=== PATIENT | female | born 1965 | race Caucasian/White ===

== ENCOUNTER 2024-02-25 09:55 | Day surgery (SDC) | payer OTHER ==
[~2024-02-25] VITALS: Ht 172.7 cm; Wt 92.8 kg
--- NOTE | ~2024-02-25 | OR ---
[facility] [address] [place], [place] [address] Draft DATE OF OPERATION: 02/25/2024 SURGEON: Jes Martell MD PREOPERATIVE DIAGNOSIS: Positive Cologuard test. POSTOPERATIVE DIAGNOSIS: Small polyps of rectum and questionable flat polyp at 110 cm (left colon). PROCEDURES: 1. Total colonoscopy to cecum with mucosal lift and excision of presumed polyp at 110 cm. 2. Polypectomies of rectal polyp. ANESTHESIA: Intravenous sedation; fentanyl 200 mcg and Versed 11 mg. INDICATION: This 58-year-old white woman is a patient of Dr. Grigsby. She was found to have a positive Cologuard test. She does have a history of colonoscopy in [place], [place] in 2013, which was said to have had "colitis" as a finding. She had been taking medicine thereafter, but time faded away from taking the medicine. She has no symptoms of bleeding, diarrhea or constipation. She has no family history of colon cancer. She is admitted at this time to undergo colonoscopy on the basis of a recent Cologuard test that was positive. She understands the risk of bleeding, infection, and perforation related to colonoscopy and wished to proceed. FINDINGS: The prep was quite excellent. Complete colonoscopy was undertaken to the cecum. She did require a fair amount of sedation for comfort. There is a ring-like flat polypoid lesion at 110 cm in the left colon which was suggestive though not particularly diagnostic of a flat polyp versus the orifice of a diverticulum. Notably, she had no other diverticula. This was treated with mucosal lift using Endomark tattoo dye as well as morcellation excision of the abnormal tissue. Hemoclips were applied. Additionally, there were very small polyps of the rectum that were excised with cold morcellation technique. PROCEDURE IN DETAIL: The patient was brought to the endoscopy suite and placed in the lateral decubitus position, given intravenous sedation to the point of slurred speech and nystagmus. PATIENT NAME: ADRIEL SEGOVIA OPERATIVE REPORT DATE OF : 63 REPORT #: [id number] PHYSICIAN: JES MARTELL MD PCP: ZION GRIGSBY MD REPORT IS CONFIDENTIAL AND NOT TO BE RELEASED WITHOUT AUTHORIZATION [facility] [address] [place], [place] [address] Draft Digital rectal examination was normal. Additional sedation was given as needed. An Olympus video colonoscope was passed in the rectum and manipulated throughout the colon noting some small polyps at the rectosigmoid. The scope was advanced beyond this ultimately to the cecum. Full intubation of the cecum was accomplished. The scope was withdrawn and examination throughout showed no sign of abnormality until approximately 110 cm from the anal verge where a ring-like elevated mucosal lesion was identified. It was suggestive of a polyp, though had some appearance of possible orifice of a diverticulum. Interrogation of the area with biopsy forceps demonstrated no actual lumen. Mucosal lift with Endomark tattoo dye was undertaken, which made the mucosal abnormality prominent. Still one could not be entirely sure that this was in fact the polyp. The edges of the lesion were excised with cold morcellation technique and ultimately two hemoclips applied to the site on the unlikely possibility this represented unifocal diverticulum. The scope was further withdrawn and ultimately the rectum once again showed very small polyps there, which were excised with cold morcellation technique. Retroflexed view showed internal hemorrhoidal change. The scope was removed and the patient was taken to the recovery room in good condition. CONCLUDING DIAGNOSES: 1. Polyps of rectum. 2. Possible polyp of left colon at 110 cm. PLAN: If the lesion at 110 cm is in fact an adenomatous polyp, would recommend repeat colonoscopy in one year for further definitive excision given its appearance. If it is not adenomatous, then repeat colonoscopy in 5 years would be reasonable. MD FREDDIE Baptiste/MODL /[id number] cc: Zion Grigsby MD Copies: ZION GRIGSBY MD PATIENT NAME: ADRIEL SEGOVIA OPERATIVE REPORT DATE OF : 63 REPORT #: [id number] PHYSICIAN: JES MARTELL MD PCP: ZION GRIGSBY MD REPORT IS CONFIDENTIAL AND NOT TO BE RELEASED WITHOUT AUTHORIZATION [facility] [address] [facility] [place], [place] [address] Draft ~ PATIENT NAME: ADRIEL SEGOVIA OPERATIVE REPORT DATE OF : 63 REPORT #: [id number] PHYSICIAN: JES MARTELL MD PCP: ZION GRIGSBY MD REPORT IS CONFIDENTIAL AND NOT TO BE RELEASED WITHOUT AUTHORIZATION
[~2024-02-25 09:55] MED LIST: AMBIEN10 MG PO; IBLOOD GLUCOSE TEST STRIP 1 EA TEST VI PRN; LACTATED RINGER'S 1,000 ML IV SCH; LIDOCAINE HCL 1% 5 ML SDV INJ ONE; MIDAZOLAM HCL 5 MG/5 ML VIAL IV PRN; NORCO 5-325 TA1 EACH PO; PROVENTIL HFA6.7 GM INH; VALTREX500 MG PO; ZYRTEC10 MG PO; [UNRECOGNIZED DRUG - OTHER] PO; fentaNYL citrate 100 MCG/2 ML VIAL IV PRN
[2024-02-25 10:09] VITALS: BP 114/68
[2024-02-25] MEDS ORDERED: WELLBUTRIN SR100 MG PO (10:12)
[2024-02-25] MEDS ORDERED: fentaNYL citrate 100 MCG/2 ML VIAL ONE (11:27)
[2024-02-25] MEDS ORDERED: MIDAZOLAM HCL 5 MG/5 ML VIAL ONE (11:27)
[2024-02-25] MEDS ORDERED: MIDAZOLAM HCL 2 MG/2 ML VIAL ONE (12:27)
--- NOTE | 2024-02-25 12:49 | NUR ---
02/25/24 Cyndee9 Aruna Alvarenga 1244 PT ARRIVED TO PACU ON 3L VIA NC, PT AWAKE AND TALKING TO RN. PLAN OF CARE DISCUSSED AND VSS. PT RESTING WITH EYES CLOSED.
[2024-02-25 13:15] VITALS: BP 123/79
--- NOTE | 2024-03-01 16:37 | PATH ---
[facility] [address] [facility] [place] [address] Signed SPECIMEN(S): A DESCENDING POLYP, 120 CM SPECIMEN(S): B RECTAL POLYP SPECIMEN SOURCE: A. DESCENDING POLYP, 120 CM B. RECTAL POLYP CLINICAL HISTORY: Positive Cologuard FINAL PATHOLOGIC DIAGNOSIS: A. Descending polyp, 120 cm: - Hyperplastic polyp (multiple fragments). B. Rectal polyp: - Hyperplastic polyp (multiple fragments). JVR:vicente MICROSCOPIC EXAMINATION: Histologic sections of all submitted blocks are examined by light microscopy. These findings, together with the gross examination, support the pathologic diagnosis. GROSS DESCRIPTION: A. The specimen, labeled and designated "Sebas T, " and designated on the requisition "descending polypectomy, biopsy, mucosal lesion 120 cm," is received in formalin and consists of multiple peck soft tissue fragments that measure 0.3-0.5 cm in greatest dimension. The specimen is entirely submitted in (A1). B. The specimen, labeled and designated "Ivannalli, T, " and designated on the requisition "rectum polypectomy," is received in formalin and consists of five peck soft tissue fragments that measure 0.3-0.5 cm in greatest dimension. The specimen is entirely submitted in (B1). FB (under the direct supervision of a pathologist) The Gross Description was prepared using a voice recognition system. The report was reviewed for accuracy; however, sound-alike word errors, addition and/or deletions may occur. If there is any question about this report, please contact Client Services. ADDITIONAL NOTES: Immunohistochemical and/or in situ hybridization studies if performed in this case included appropriate positive controls that reacted as expected. This PATIENT NAME: ADRIEL SEGOVIA PATHOLOGY DATE OF : 63 REPORT #: [id number] PHYSICIAN: LORENE PRO PCP: ZION CONNOLLY MD REPORT IS CONFIDENTIAL AND NOT TO BE RELEASED WITHOUT AUTHORIZATION [facility] [address] [place], [place] [address] Signed test was developed and its performance characteristics determined by [facility]. It has not been cleared or approved by the U.S. Food and Drug Administration. The FDA has determined that such clearance or approval is not necessary. This test is used for clinical purposes. It should not be regarded as investigational or for research. [facility] is certified under the Clinical Laboratory Improvement Amendments of 1988 (CLIA) as qualified to perform high complexity clinical laboratory testing. PERFORMING LABORATORY: Technical component was performed by [facility], [address] [place] [id number] (CLIA# [id number]). Professional interpretation was performed by [facility], [address] [place] [id number] (CLIA#: [id number]). Diagnostician: Benitez Werner MD Pathologist Electronically Signed 03/01/2024 Copies: ~ PATIENT NAME: ADRIEL SEGOVIA PATHOLOGY DATE OF : 63 REPORT #: [id number] PHYSICIAN: LORENE PRO PCP: ZION CONNOLLY MD REPORT IS CONFIDENTIAL AND NOT TO BE RELEASED WITHOUT AUTHORIZATION
== END 2024-02-25 13:29 | disposition home or self-care (01) ==
LOC: DS 09:55
PROVIDERS: ATTEND Surgery
PROC: 0DBE8ZX Excision of Large Intestine, Via Natural or Artificial Opening Endoscopic, Diagnostic (ICD-10-PCS; 2024-02-25)
PROC: 0DBP8ZX Excision of Rectum, Via Natural or Artificial Opening Endoscopic, Diagnostic (ICD-10-PCS; principal; 2024-02-25 11:00)
DX: Z12.11 Encounter for screening for malignant neoplasm of colon (principal); K63.5 Polyp of colon; K62.1 Rectal polyp; Z87.19 Personal history of other diseases of the digestive system; R22.1 Localized swelling, mass and lump, neck; F41.9 Anxiety disorder, unspecified; J45.909 Unspecified asthma, uncomplicated; K21.9 Gastro-esophageal reflux disease without esophagitis; Z88.1 Allergy status to other antibiotic agents; Z79.899 Other long term (current) drug therapy
CPT/HCPCS: 99153; G0500; J2250; J3010